=== PATIENT | female | born 1940 | race Caucasian/White ===

== ENCOUNTER 2019-06-12 23:09 | Inpatient (IN) ==
[2019-06-13] MEDS ORDERED: DEXTROSE 50% 25 GM/50 ML VIAL IV PRN (03:06)
[2019-06-13] MEDS ORDERED: traZODone 50 MG TABLET PO PRN (03:06)
[2019-06-13] MEDS ORDERED: GLUCAGON 1 MG VIAL IM PRN (03:06)
[2019-06-13 05:09] LABS: Basophils # 0.1 10*3/uL (0.0-0.2); Basophils % 0.6 % (0.0-0.8); Eosinophils # 0.2 10*3/uL (0.0-0.87); Eosinophils % 2.4 % (0.00-10.9); Hematocrit 34.6 VOL% (35.7-47.0); Hemoglobin 10.4 GM/DL (12.0-16.0); Immature Granulocytes % 0.3 %; Immature Granulocytes Absolute 0.03 #; Lymphocytes # 2.1 10*3/uL (1.4-4.0); Lymphocytes % 20.4 % (21.3-54.2); Mean Corpuscular HGB Conc 30.1 GM/DL (32-36); Mean Corpuscular Volume 90.6 FL (87-102); Mean Platelet Volume 12.1 FL (9.6-12.0); Neutrophils % 67.3 % (38.7-73.9); Platelet Count 112 T/CUMM (130-400); Red Blood Count 3.82 MC/CUMM (3.8-5.5); Red Cell Distribution Width 15.4 % (9.3-17.3); White Blood Count 10.1 T/CUMM (4-12)
[2019-06-13 05:43] LABS: Albumin 3.2 G/DL (3.4-5.0); Bilirubin,Total 0.6 MG/DL (0.2-1.0); Calcium 8.9 MG/DL (8.5-10.1); Osmolality,Calculated 298.3 MOS/KG (273-304); Total Protein 6.6 G/DL (6.4-8.3)
[2019-06-13 05:58] LABS: % Iron Saturation 7.2 % (18-50); Ferritin 14.9 ng/ml (8-252)
[2019-06-13 06:09] LABS: Risk Ratio 1.87; Thyroid Stimulating Hormone 1.64 uIU/ml (0.358-3.74); VLDL CHOLESTEROL 23.2 MG/DL
[2019-06-13 06:36] LABS: Sedimentation Rate-Westergren 40 MM/HR (0-30)
[2019-06-13] MEDS: INSULIN LISPRO 100 UNIT/ML SUBCUT SCH ×7 (08:24→22:05)
[2019-06-13] MEDS: ENOXAPARIN 30 MG/0.3 ML SYRINGE SUBCUT SCH (08:38)
[2019-06-13] MEDS: FUROSEMIDE 40 MG/4 ML VIAL IV SCH ×2 (08:38→16:30)
[2019-06-13] MEDS: MAGNESIUM CHLORIDE 64 MG TABLET PO SCH ×2 (08:39→22:04)
[2019-06-13] MEDS: CETIRIZINE 10 MG TABLET PO SCH (08:39)
[2019-06-13] MEDS: CYANOCOBALAMIN 500 MCG TABLET PO SCH (08:39)
[2019-06-13] MEDS: amLODIPine 5 MG TABLET PO SCH (08:39)
[2019-06-13] MEDS: METOPROLOL TARTRATE 50 MG TABLET PO SCH ×2 (08:39→22:04)
[2019-06-13] MEDS: ASPIRIN EC 81 MG TABLET PO SCH (08:39)
[2019-06-13] MEDS: ACETAMINOPHEN 325 MG TABLET PO PRN ×2 (08:39→13:35)
[2019-06-13] MEDS: ALLOPURINOL 300 MG TABLET PO SCH (08:39)
[2019-06-13] MEDS: CITALOPRAM 20 MG TABLET PO SCH (08:39)
[2019-06-13] MEDS: ATORVASTATIN 80 MG TABLET PO SCH (08:39)
[2019-06-13 09:52] LABS: Hemoglobin A1 (Alkaline) 97.6 % (96.5-98.5); Hemoglobin A2 (Alkaline) 2.4 % (1.5-3.5)
[2019-06-13 10:32] LABS: Folate 13.2 NG/ML (5.4-24.0); Vitamin B12 1735 PG/ML (211-911)
[2019-06-13] MEDS: MORPHINE 4 MG/1 ML VIAL IV PRN ×2 (16:30→22:06)
[2019-06-13] MEDS: INSULIN GLARGINE 100 UNIT/ML SUBCUT SCH (22:05)
[2019-06-14 05:04] LABS: Calcium 8.8 MG/DL (8.5-10.1); Osmolality,Calculated 296.4 MOS/KG (273-304)
[2019-06-14] MEDS: INSULIN LISPRO 100 UNIT/ML SUBCUT SCH ×7 (08:39→21:58)
[2019-06-14] MEDS: ATORVASTATIN 80 MG TABLET PO SCH (08:40)
[2019-06-14] MEDS: CYANOCOBALAMIN 500 MCG TABLET PO SCH (08:40)
[2019-06-14] MEDS: MAGNESIUM CHLORIDE 64 MG TABLET PO SCH ×2 (08:40→21:57)
[2019-06-14] MEDS: ALLOPURINOL 300 MG TABLET PO SCH (08:40)
[2019-06-14] MEDS: ASPIRIN EC 81 MG TABLET PO SCH (08:40)
[2019-06-14] MEDS: CITALOPRAM 20 MG TABLET PO SCH (08:40)
[2019-06-14] MEDS: FUROSEMIDE 40 MG/4 ML VIAL IV SCH ×2 (08:40→16:51)
[2019-06-14] MEDS: amLODIPine 5 MG TABLET PO SCH (08:40)
[2019-06-14] MEDS: METOPROLOL TARTRATE 50 MG TABLET PO SCH ×2 (08:40→21:56)
[2019-06-14] MEDS: CETIRIZINE 10 MG TABLET PO SCH (08:41)
[2019-06-14] MEDS: ENOXAPARIN 30 MG/0.3 ML SYRINGE SUBCUT SCH (08:42)
[2019-06-14] MEDS: MORPHINE 4 MG/1 ML VIAL IV PRN ×2 (10:41→22:00)
[2019-06-14] MEDS: ALBUTEROL/IPRATROPIUM 3 ML NEB RESP TX SCH ×2 (15:53→19:40)
[2019-06-14] MEDS: traZODone 50 MG TABLET PO PRN (21:56)
[2019-06-14] MEDS: INSULIN GLARGINE 100 UNIT/ML SUBCUT SCH (21:57)
[2019-06-15] MEDS: MORPHINE 4 MG/1 ML VIAL IV PRN (02:35)
[2019-06-15] MEDS: ONDANSETRON 4 MG/2 ML VIAL IV PRN ×2 (05:03→09:15)
[2019-06-15] MEDS: ACETAMINOPHEN 325 MG TABLET PO PRN (05:04)
[2019-06-15] MEDS: ALBUTEROL/IPRATROPIUM 3 ML NEB RESP TX SCH ×4 (07:23→20:00)
[2019-06-15] MEDS: INSULIN LISPRO 100 UNIT/ML SUBCUT SCH ×7 (08:19→22:16)
[2019-06-15 09:07] LABS: Basophils % 0.3 % (0.0-0.8); Eosinophils # 0.1 10*3/uL (0.0-0.87); Eosinophils % 1.1 % (0.00-10.9); Hematocrit 33.9 VOL% (35.7-47.0); Immature Granulocytes % 0.3 %; Immature Granulocytes Absolute 0.03 #; Lymphocytes # 2.1 10*3/uL (1.4-4.0); Lymphocytes % 22.9 % (21.3-54.2); Mean Corpuscular HGB Conc 29.5 GM/DL (32-36); Mean Corpuscular Volume 92.9 FL (87-102); Mean Platelet Volume 12.2 FL (9.6-12.0); Neutrophils % 65.4 % (38.7-73.9); Platelet Count 105 T/CUMM (130-400); Red Blood Count 3.65 MC/CUMM (3.8-5.5); Red Cell Distribution Width 15.3 % (9.3-17.3)
[2019-06-15] MEDS: FUROSEMIDE 40 MG/4 ML VIAL IV SCH ×2 (09:16→16:14)
[2019-06-15 09:21] LABS: Calcium 8.5 MG/DL (8.5-10.1); Osmolality,Calculated 293.8 MOS/KG (273-304)
[2019-06-15] MEDS: ASPIRIN EC 81 MG TABLET PO SCH (09:37)
[2019-06-15] MEDS: ENOXAPARIN 30 MG/0.3 ML SYRINGE SUBCUT SCH (09:37)
[2019-06-15] MEDS: CYANOCOBALAMIN 500 MCG TABLET PO SCH (09:38)
[2019-06-15] MEDS: DOCUSATE SODIUM 100 MG CAPSULE PO PRN (09:38)
[2019-06-15] MEDS: CITALOPRAM 20 MG TABLET PO SCH (09:38)
[2019-06-15] MEDS: METOPROLOL TARTRATE 50 MG TABLET PO SCH ×2 (09:38→22:16)
[2019-06-15] MEDS: CETIRIZINE 10 MG TABLET PO SCH (09:38)
[2019-06-15] MEDS: ATORVASTATIN 80 MG TABLET PO SCH (09:38)
[2019-06-15] MEDS: amLODIPine 5 MG TABLET PO SCH (09:38)
[2019-06-15] MEDS: ALLOPURINOL 300 MG TABLET PO SCH (09:38)
[2019-06-15] MEDS: MAGNESIUM CHLORIDE 64 MG TABLET PO SCH ×2 (09:38→22:16)
[2019-06-15] MEDS ORDERED: MECLIZINE 25 MG TABLET PO ONE (11:16)
[2019-06-15] MEDS ORDERED: PANTOPRAZOLE 40 MG VIAL IV ONE (13:23)
[2019-06-15] MEDS: MECLIZINE 25 MG TABLET PO SCH ×2 (16:03→22:13)
[2019-06-15] MEDS: INSULIN GLARGINE 100 UNIT/ML SUBCUT SCH (22:17)
[2019-06-15] MEDS: traZODone 50 MG TABLET PO PRN (22:21)
[2019-06-16] MEDS: ONDANSETRON 4 MG/2 ML VIAL IV PRN ×2 (01:42→07:05)
[2019-06-16] MEDS: MORPHINE 4 MG/1 ML VIAL IV PRN (03:26)
[2019-06-16 05:19] LABS: Basophils % 0.2 % (0.0-0.8); Eosinophils % 0.2 % (0.00-10.9); Hematocrit 32.9 VOL% (35.7-47.0); Hemoglobin 9.8 GM/DL (12.0-16.0); Immature Granulocytes % 0.8 %; Immature Granulocytes Absolute 0.08 #; Lymphocytes # 0.8 10*3/uL (1.4-4.0); Lymphocytes % 7.4 % (21.3-54.2); Mean Corpuscular HGB Conc 29.8 GM/DL (32-36); Mean Corpuscular Volume 92.9 FL (87-102); Mean Platelet Volume 12.2 FL (9.6-12.0); Monocytes % 9.8 % (1.7-12.7); Neutrophils % 81.6 % (38.7-73.9); Platelet Count 129 T/CUMM (130-400); Red Blood Count 3.54 MC/CUMM (3.8-5.5); Red Cell Distribution Width 15.1 % (9.3-17.3); White Blood Count 10.6 T/CUMM (4-12)
[2019-06-16 05:39] LABS: Calcium 8.2 MG/DL (8.5-10.1); Osmolality,Calculated 293.7 MOS/KG (273-304)
[2019-06-16] MEDS: ALBUTEROL/IPRATROPIUM 3 ML NEB RESP TX SCH ×4 (07:25→19:29)
[2019-06-16] MEDS: FUROSEMIDE 40 MG/4 ML VIAL IV SCH (08:40)
[2019-06-16] MEDS: CETIRIZINE 10 MG TABLET PO SCH (08:41)
[2019-06-16] MEDS: ENOXAPARIN 30 MG/0.3 ML SYRINGE SUBCUT SCH (08:41)
[2019-06-16] MEDS: ASPIRIN EC 81 MG TABLET PO SCH (08:41)
[2019-06-16] MEDS: MECLIZINE 25 MG TABLET PO SCH (08:41)
[2019-06-16] MEDS: ATORVASTATIN 80 MG TABLET PO SCH (08:42)
[2019-06-16] MEDS: ALLOPURINOL 300 MG TABLET PO SCH (08:42)
[2019-06-16] MEDS: CITALOPRAM 20 MG TABLET PO SCH (08:42)
[2019-06-16] MEDS: CYANOCOBALAMIN 500 MCG TABLET PO SCH (08:42)
[2019-06-16] MEDS: PANTOPRAZOLE 40 MG TABLET PO SCH (08:42)
[2019-06-16] MEDS: METOPROLOL TARTRATE 50 MG TABLET PO SCH ×2 (08:42→20:34)
[2019-06-16] MEDS: INSULIN LISPRO 100 UNIT/ML SUBCUT SCH ×5 (08:43→20:34)
[2019-06-16 10:20] LABS: ABG Base Excess -4.9 MMOL/L (-2.5-2.5); ABG HCO3 20.3 MMOL/L (20-26); ABG Oxygen Saturation 92.7 % (95-100); ABG PO2 72.5 MM HG (80-95)
[2019-06-16 10:26] LABS: ABG PH 7.184 (7.35-7.45)
[2019-06-16] MEDS: amLODIPine 5 MG TABLET PO SCH (11:23)
[2019-06-16] MEDS: MAGNESIUM CHLORIDE 64 MG TABLET PO SCH ×2 (11:24→20:34)
[2019-06-16] MEDS ORDERED: CLORAZEPATE 3.75 MG TABLET PO PRN (12:22)
[2019-06-16 12:31] LABS: ABG Base Excess -4.5 MMOL/L (-2.5-2.5); ABG HCO3 20.7 MMOL/L (20-26); ABG Oxygen Saturation 96.5 % (95-100); ABG PCO2 61.4 MM HG (35-48); ABG PO2 90.6 MM HG (80-95); ABG TCO2 22.8 MMOL/L (23-27); Pt O2 Delivery Device BIPAP
[2019-06-16 12:34] LABS: ABG PH 7.206 (7.35-7.45)
[2019-06-16] MEDS ORDERED: SODIUM BICARB INJ 100 MEQ in SODIUM CHLORIDE 0.45% 1,000 ML IV SCH (15:00)
[2019-06-16 15:28] LABS: Apearance,Urine Slightly Hazy (Clear); Bacteria,Urine Occasional /HPF (Few); Bilirubin,Urine Negative (Negative); Blood, Urine Negative (Negative); Glucose,Urine (UA) Negative (Negative); Hyaline Casts,Urine 6 /LPF (0-3); Ketones,Urine Negative (Negative); Mucus,Urine Occasional /LPF (Occasional); Nitrite,Urine Negative (Negative); Protein,Urine Negative; RBC,Urine 10 /HPF (0-4); Squamous Epithelial Cell,Urine Occasional /HPF (0-10); Urine Color Amber (Yellow); Urine Specific Gravity 1.016 (1.001-1.035); WBC,Urine 4 /HPF (0-6)
[2019-06-16] MEDS: methylPREDNISolone SOD SUC 40 MG/1 ML VIAL IV SCH ×2 (15:51→23:02)
[2019-06-16] MEDS: SODIUM BICARB INJ 100 MEQ in SODIUM CHLORIDE 0.45% 1,000 ML IV SCH (16:34)
[2019-06-16] MEDS ORDERED: FUROSEMIDE 40 MG/4 ML VIAL IV ONE (18:19)
[2019-06-16] MEDS: INSULIN GLARGINE 100 UNIT/ML SUBCUT SCH (20:34)
[2019-06-17] MEDS: ONDANSETRON 4 MG/2 ML VIAL IV PRN ×2 (02:02→08:11)
[2019-06-17] MEDS: SODIUM BICARB INJ 100 MEQ in SODIUM CHLORIDE 0.45% 1,000 ML IV SCH ×2 (02:02→13:44)
[2019-06-17 03:36] LABS: ABG Base Excess -5.1 MMOL/L (-2.5-2.5); ABG HCO3 20.1 MMOL/L (20-26); ABG Oxygen Saturation 91.2 % (95-100); ABG PO2 69.6 MM HG (80-95); ABG TCO2 22.3 MMOL/L (23-27); Allen Test Positive
[2019-06-17 03:40] LABS: ABG PH 7.199 (7.35-7.45)
[2019-06-17 04:44] LABS: Osmolality,Calculated 298.7 MOS/KG (273-304)
[2019-06-17] MEDS: ALBUTEROL/IPRATROPIUM 3 ML NEB RESP TX SCH ×4 (06:56→20:18)
[2019-06-17] MEDS: CITALOPRAM 20 MG TABLET PO SCH (08:08)
[2019-06-17] MEDS: ATORVASTATIN 80 MG TABLET PO SCH (08:08)
[2019-06-17] MEDS: METOPROLOL TARTRATE 50 MG TABLET PO SCH ×2 (08:08→21:54)
[2019-06-17] MEDS: CYANOCOBALAMIN 500 MCG TABLET PO SCH (08:08)
[2019-06-17] MEDS: PANTOPRAZOLE 40 MG TABLET PO SCH (08:08)
[2019-06-17] MEDS: ASPIRIN EC 81 MG TABLET PO SCH (08:08)
[2019-06-17] MEDS: ALLOPURINOL 300 MG TABLET PO SCH (08:09)
[2019-06-17] MEDS: ACETAMINOPHEN 325 MG TABLET PO PRN (08:10)
[2019-06-17] MEDS: ENOXAPARIN 30 MG/0.3 ML SYRINGE SUBCUT SCH (08:11)
[2019-06-17] MEDS: methylPREDNISolone SOD SUC 40 MG/1 ML VIAL IV SCH ×3 (08:13→23:10)
[2019-06-17] MEDS: INSULIN LISPRO 100 UNIT/ML SUBCUT SCH ×4 (08:15→21:53)
[2019-06-17] MEDS: MAGNESIUM CHLORIDE 64 MG TABLET PO SCH ×2 (08:16→21:54)
[2019-06-17 10:31] LABS: Hepatitis B Core IgM Quant 0.07 Index; Hepatitis B Surface Ag Quant 0.21 Index; Hepatitis B Surface Ag Result Negative (Negative); Hepatitis C Virus Ab Quant < 0.02 Index; Hepatitis C Virus Ab Result Negative (Negative)
[2019-06-17] MEDS: CLORAZEPATE 3.75 MG TABLET PO SCH ×3 (11:41→22:05)
[2019-06-17] MEDS: INSULIN GLARGINE 100 UNIT/ML SUBCUT SCH (21:53)
[2019-06-18] MEDS: SODIUM BICARB INJ 100 MEQ in SODIUM CHLORIDE 0.45% 1,000 ML IV SCH ×3 (00:53→22:41)
[2019-06-18] MEDS ORDERED: CLORAZEPATE 3.75 MG TABLET PO ONE ×2 (02:49→09:41)
[2019-06-18 04:00] LABS: Hematocrit 31.1 VOL% (35.7-47.0); Hemoglobin 9.2 GM/DL (12.0-16.0); Immature Granulocytes % 0.6 %; Immature Granulocytes Absolute 0.07 #; Lymphocytes # 0.3 10*3/uL (1.4-4.0); Lymphocytes % 2.7 % (21.3-54.2); Mean Corpuscular HGB Conc 29.6 GM/DL (32-36); Mean Corpuscular Volume 91.5 FL (87-102); Mean Platelet Volume 11.9 FL (9.6-12.0); Monocytes % 3.9 % (1.7-12.7); NRBC # 0.07 10*3/uL; Neutrophils % 92.8 % (38.7-73.9); Platelet Count 160 T/CUMM (130-400); Red Cell Distribution Width 15.1 % (9.3-17.3); White Blood Count 10.8 T/CUMM (4-12)
[2019-06-18 04:06] LABS: Calcium 7.5 MG/DL (8.5-10.1); Osmolality,Calculated 308.7 MOS/KG (273-304)
[2019-06-18 04:24] LABS: ABG Base Excess -0.7 MMOL/L (-2.5-2.5); ABG HCO3 23.7 MMOL/L (20-26); ABG Oxygen Saturation 90.7 % (95-100); ABG PCO2 56.3 MM HG (35-48); ABG PH 7.284 (7.35-7.45); ABG PO2 67.2 MM HG (80-95); ABG TCO2 24.9 MMOL/L (23-27); Allen Test Positive; Pt O2 Delivery Device CPAP
[2019-06-18 05:29] LABS: Band Neutrophils 1 % (0-10); Hypochromasia 1+; Lymphocytes 2 % (20-55); Ovalocytes Slight; Platelet Estimate Adequate; Segmented Neutrophils 92 % (50-85); Total Cells Counted 100
[2019-06-18] MEDS: CLORAZEPATE 3.75 MG TABLET PO SCH (05:50)
[2019-06-18] MEDS: methylPREDNISolone SOD SUC 40 MG/1 ML VIAL IV SCH ×2 (07:06→18:16)
[2019-06-18] MEDS: ALBUTEROL/IPRATROPIUM 3 ML NEB RESP TX SCH ×4 (07:16→19:59)
[2019-06-18] MEDS: INSULIN LISPRO 100 UNIT/ML SUBCUT SCH ×4 (08:47→20:40)
[2019-06-18] MEDS: ENOXAPARIN 30 MG/0.3 ML SYRINGE SUBCUT SCH (08:47)
[2019-06-18] MEDS: MAGNESIUM CHLORIDE 64 MG TABLET PO SCH ×2 (08:48→20:41)
[2019-06-18] MEDS: CYANOCOBALAMIN 500 MCG TABLET PO SCH (08:48)
[2019-06-18] MEDS: ALLOPURINOL 300 MG TABLET PO SCH (08:48)
[2019-06-18] MEDS: ATORVASTATIN 80 MG TABLET PO SCH (08:48)
[2019-06-18] MEDS: METOPROLOL TARTRATE 50 MG TABLET PO SCH ×2 (08:48→20:40)
[2019-06-18] MEDS: CITALOPRAM 20 MG TABLET PO SCH (08:48)
[2019-06-18] MEDS: PANTOPRAZOLE 40 MG TABLET PO SCH (08:48)
[2019-06-18] MEDS: ASPIRIN EC 81 MG TABLET PO SCH (08:48)
[2019-06-18] MEDS ORDERED: LACTULOSE 20 GM/30 ML UDCUP PO ONE ×2 (09:43→09:45)
[2019-06-18] MEDS: POLYETHYLENE GLYCOL POWDER 17 GM PACK PO SCH (09:50)
[2019-06-18] MEDS: INSULIN GLARGINE 100 UNIT/ML SUBCUT SCH ×2 (11:27→20:40)
[2019-06-18] MEDS: CLORAZEPATE 7.5 MG TABLET PO SCH ×3 (11:27→22:40)
[2019-06-18 23:07] LABS: ABG Base Excess 0.1 MMOL/L (-2.5-2.5); ABG Oxygen Saturation 64.3 % (95-100); ABG PCO2 61.5 MM HG (35-48); ABG PH 7.268 (7.35-7.45); ABG TCO2 26.3 MMOL/L (23-27); Pt O2 Delivery Device BIPAP
[2019-06-18 23:10] LABS: ABG PO2 38.6 MM HG (80-95)
[2019-06-18 23:43] LABS: ABG HCO3 25.1 MMOL/L (20-26); ABG Oxygen Saturation 84.6 % (95-100); ABG PH 7.282 (7.35-7.45); ABG PO2 55.1 MM HG (80-95); ABG TCO2 26.8 MMOL/L (23-27); Allen Test Positive; Pt O2 Delivery Device BIPAP
[2019-06-19] MEDS: MORPHINE 4 MG/1 ML VIAL IV PRN ×3 (01:36→23:13)
[2019-06-19] MEDS ORDERED: NITROGLYCERIN SL 0.4 MG TABLET SL PRN (01:38)
[2019-06-19] MEDS ORDERED: MORPHINE 4 MG/1 ML VIAL ONE (01:39)
[2019-06-19] MEDS ORDERED: NITROGLYCERIN SL 0.4 MG TABLET SL ONE (01:40)
[2019-06-19 02:10] LABS: Basophils % 0.1 % (0.0-0.8); Hematocrit 30.1 VOL% (35.7-47.0); Hemoglobin 9.2 GM/DL (12.0-16.0); Immature Granulocytes % 0.4 %; Immature Granulocytes Absolute 0.08 #; Lymphocytes # 0.2 10*3/uL (1.4-4.0); Lymphocytes % 1.3 % (21.3-54.2); Mean Corpuscular HGB Conc 30.6 GM/DL (32-36); Mean Corpuscular Volume 89.9 FL (87-102); Mean Platelet Volume 12.1 FL (9.6-12.0); Monocytes % 6.9 % (1.7-12.7); NRBC # 0.08 10*3/uL; Neutrophils % 91.3 % (38.7-73.9); Platelet Count 147 T/CUMM (130-400); Red Blood Count 3.35 MC/CUMM (3.8-5.5); Red Cell Distribution Width 15.3 % (9.3-17.3); White Blood Count 18.7 T/CUMM (4-12)
[2019-06-19 02:19] LABS: Calcium 7.8 MG/DL (8.5-10.1); Osmolality,Calculated 309.7 MOS/KG (273-304)
[2019-06-19 02:38] LABS: Anisocytosis 1+; Band Neutrophils 1 % (0-10); Lymphocytes 1 % (20-55); Nucleated Red Blood Cells 2 (0-5); Ovalocytes 1+; Platelet Estimate Adequate; Segmented Neutrophils 92 % (50-85); Total Cells Counted 100
[2019-06-19] MEDS: NITROGLYCERIN 2% OINT 1 INCH/GM PACK TOP ONE ×2 (04:52→05:10)
[2019-06-19] MEDS: CLORAZEPATE 7.5 MG TABLET PO SCH ×5 (04:53→20:29)
[2019-06-19] MEDS: ACETAMINOPHEN 325 MG TABLET PO PRN (05:15)
[2019-06-19] MEDS: methylPREDNISolone SOD SUC 40 MG/1 ML VIAL IV SCH ×2 (06:24→17:28)
[2019-06-19] MEDS: ALBUTEROL/IPRATROPIUM 3 ML NEB RESP TX SCH ×4 (07:27→19:20)
[2019-06-19] MEDS: ONDANSETRON 4 MG/2 ML VIAL IV PRN (07:54)
[2019-06-19] MEDS: INSULIN LISPRO 100 UNIT/ML SUBCUT SCH ×6 (08:08→20:29)
[2019-06-19] MEDS: INSULIN GLARGINE 100 UNIT/ML SUBCUT SCH ×2 (09:54→20:29)
[2019-06-19] MEDS: ENOXAPARIN 30 MG/0.3 ML SYRINGE SUBCUT SCH (09:54)
[2019-06-19] MEDS: POLYETHYLENE GLYCOL POWDER 17 GM PACK PO SCH (09:57)
[2019-06-19] MEDS: ALLOPURINOL 300 MG TABLET PO SCH (09:57)
[2019-06-19] MEDS: MAGNESIUM CHLORIDE 64 MG TABLET PO SCH ×2 (09:58→20:29)
[2019-06-19] MEDS: ASPIRIN EC 81 MG TABLET PO SCH (09:58)
[2019-06-19] MEDS: CITALOPRAM 20 MG TABLET PO SCH (09:58)
[2019-06-19] MEDS: ATORVASTATIN 80 MG TABLET PO SCH (09:58)
[2019-06-19] MEDS: CYANOCOBALAMIN 500 MCG TABLET PO SCH (09:58)
[2019-06-19] MEDS: PANTOPRAZOLE 40 MG TABLET PO SCH (09:58)
[2019-06-19] MEDS: METOPROLOL TARTRATE 50 MG TABLET PO SCH ×2 (09:58→20:29)
[2019-06-20] MEDS: INSULIN LISPRO 100 UNIT/ML SUBCUT SCH ×6 (00:42→21:02)
[2019-06-20] MEDS: CLORAZEPATE 7.5 MG TABLET PO SCH ×4 (01:10→19:36)
[2019-06-20 02:26] LABS: Basophils % 0.1 % (0.0-0.8); Hematocrit 29.2 VOL% (35.7-47.0); Hemoglobin 8.8 GM/DL (12.0-16.0); Immature Granulocytes % 0.5 %; Immature Granulocytes Absolute 0.07 #; Lymphocytes # 0.3 10*3/uL (1.4-4.0); Lymphocytes % 2.1 % (21.3-54.2); Mean Corpuscular HGB Conc 30.1 GM/DL (32-36); Mean Corpuscular Volume 90.4 FL (87-102); Mean Platelet Volume 11.9 FL (9.6-12.0); Monocytes % 5.5 % (1.7-12.7); NRBC # 0.18 10*3/uL; Neutrophils % 91.8 % (38.7-73.9); Platelet Count 159 T/CUMM (130-400); Red Blood Count 3.23 MC/CUMM (3.8-5.5); Red Cell Distribution Width 15.4 % (9.3-17.3); White Blood Count 13.5 T/CUMM (4-12)
[2019-06-20 02:43] LABS: Osmolality,Calculated 303.2 MOS/KG (273-304)
[2019-06-20 03:18] LABS: CKMB % 9.6 %
[2019-06-20 03:20] LABS: Troponin I 5.59 NG/ML (0.00-0.045)
[2019-06-20 04:14] LABS: Lymphocytes 1 % (20-55); Nucleated Red Blood Cells 1 (0-5); Platelet Estimate Adequate; Polychromasia Few; Segmented Neutrophils 98 % (50-85); Total Cells Counted 100
[2019-06-20] MEDS: methylPREDNISolone SOD SUC 40 MG/1 ML VIAL IV SCH ×2 (05:38→18:14)
[2019-06-20] MEDS: ALBUTEROL/IPRATROPIUM 3 ML NEB RESP TX SCH ×4 (07:56→20:05)
[2019-06-20] MEDS: ATORVASTATIN 80 MG TABLET PO SCH (08:18)
[2019-06-20] MEDS: PANTOPRAZOLE 40 MG TABLET PO SCH (08:20)
[2019-06-20] MEDS: MAGNESIUM CHLORIDE 64 MG TABLET PO SCH ×2 (08:20→20:33)
[2019-06-20] MEDS: CITALOPRAM 20 MG TABLET PO SCH (08:20)
[2019-06-20] MEDS: ALLOPURINOL 300 MG TABLET PO SCH (08:20)
[2019-06-20] MEDS: ASPIRIN EC 81 MG TABLET PO SCH (08:20)
[2019-06-20] MEDS: CYANOCOBALAMIN 500 MCG TABLET PO SCH (08:20)
[2019-06-20] MEDS: ENOXAPARIN 30 MG/0.3 ML SYRINGE SUBCUT SCH (08:23)
[2019-06-20] MEDS: INSULIN GLARGINE 100 UNIT/ML SUBCUT SCH ×2 (08:24→21:00)
[2019-06-20] MEDS: METOPROLOL TARTRATE 50 MG TABLET PO SCH ×2 (09:39→21:00)
[2019-06-20] MEDS: POLYETHYLENE GLYCOL POWDER 17 GM PACK PO SCH (12:16)
[2019-06-20] MEDS ORDERED: ALBUMIN 25% 25 GM in PREMIX 1 EACH IV ONE (14:00)
[2019-06-20] MEDS ORDERED: HEPARIN 10,000 UNIT/10 ML VIAL IV SCH (14:00)
[2019-06-21] MEDS: INSULIN LISPRO 100 UNIT/ML SUBCUT SCH ×6 (00:24→21:57)
[2019-06-21] MEDS: CLORAZEPATE 7.5 MG TABLET PO SCH ×2 (01:29→08:07)
[2019-06-21 03:40] LABS: Basophils % 0.1 % (0.0-0.8); Hematocrit 29.8 VOL% (35.7-47.0); Hemoglobin 8.7 GM/DL (12.0-16.0); Immature Granulocytes % 0.5 %; Immature Granulocytes Absolute 0.07 #; Lymphocytes # 0.2 10*3/uL (1.4-4.0); Lymphocytes % 1.7 % (21.3-54.2); Mean Corpuscular HGB Conc 29.2 GM/DL (32-36); Mean Corpuscular Volume 93.1 FL (87-102); Mean Platelet Volume 11.6 FL (9.6-12.0); Monocytes % 6.6 % (1.7-12.7); NRBC # 0.36 10*3/uL; Neutrophils % 91.1 % (38.7-73.9); Platelet Count 137 T/CUMM (130-400); Red Cell Distribution Width 15.8 % (9.3-17.3); White Blood Count 14.1 T/CUMM (4-12)
[2019-06-21 04:05] LABS: Calcium 8.7 MG/DL (8.5-10.1); Osmolality,Calculated 292.2 MOS/KG (273-304)
[2019-06-21 04:16] LABS: Troponin I 4.1 NG/ML (0.00-0.045)
[2019-06-21 04:38] LABS: Lymphocytes 2 % (20-55); Myelocytes 1 %; Nucleated Red Blood Cells 3 (0-5); Segmented Neutrophils 86 % (50-85); Total Cells Counted 100
[2019-06-21 04:39] LABS: Hypochromasia 1+; Ovalocytes 1+; Platelet Estimate Normal
[2019-06-21 04:40] LABS: Polychromasia Few
[2019-06-21] MEDS: methylPREDNISolone SOD SUC 40 MG/1 ML VIAL IV SCH ×2 (05:40→18:01)
[2019-06-21] MEDS: ENOXAPARIN 30 MG/0.3 ML SYRINGE SUBCUT SCH ×2 (08:09→10:47)
[2019-06-21] MEDS: ALBUTEROL/IPRATROPIUM 3 ML NEB RESP TX SCH ×4 (08:15→20:34)
[2019-06-21] MEDS: INSULIN GLARGINE 100 UNIT/ML SUBCUT SCH ×2 (08:26→21:52)
[2019-06-21] MEDS: MAGNESIUM CHLORIDE 64 MG TABLET PO SCH ×2 (08:27→21:52)
[2019-06-21] MEDS ORDERED: ALBUMIN 25% 25 GM in PREMIX 1 EACH IV ONE (10:00)
[2019-06-21] MEDS: CITALOPRAM 20 MG TABLET PO SCH (10:29)
[2019-06-21] MEDS: METOPROLOL TARTRATE 50 MG TABLET PO SCH ×2 (10:29→21:58)
[2019-06-21] MEDS: POLYETHYLENE GLYCOL POWDER 17 GM PACK PO SCH (10:29)
[2019-06-21 10:30] LABS: ABG Base Excess 0.1 MMOL/L (-2.5-2.5); ABG HCO3 29.7 MMOL/L (20-26); ABG Oxygen Saturation 95.8 % (95-100); ABG PO2 90.7 MM HG (80-95); ABG TCO2 32.2 MMOL/L (23-27); Allen Test Positive
[2019-06-21] MEDS: ASCORBIC ACID 500 MG TABLET PO SCH ×2 (10:30→21:59)
[2019-06-21 10:35] LABS: ABG PCO2 81.4 MM HG (35-48)
[2019-06-21] MEDS: ATORVASTATIN 80 MG TABLET PO SCH (10:48)
[2019-06-21] MEDS: PANTOPRAZOLE 40 MG TABLET PO SCH (10:48)
[2019-06-21] MEDS: ALLOPURINOL 300 MG TABLET PO SCH (10:48)
[2019-06-21] MEDS: ASPIRIN EC 81 MG TABLET PO SCH (10:48)
[2019-06-21] MEDS: CYANOCOBALAMIN 500 MCG TABLET PO SCH (10:48)
[2019-06-21 13:49] LABS: ABG Base Excess -1.5 MMOL/L (-2.5-2.5); ABG HCO3 23.1 MMOL/L (20-26); ABG Oxygen Saturation 91.7 % (95-100); ABG PO2 68.9 MM HG (80-95); ABG TCO2 26.2 MMOL/L (23-27)
[2019-06-21 13:51] LABS: ABG PCO2 69.7 MM HG (35-48); ABG PH 7.207 (7.35-7.45)
[2019-06-21] MEDS: ACETAMINOPHEN 325 MG TABLET PO PRN (18:11)
[2019-06-22] MEDS: INSULIN LISPRO 100 UNIT/ML SUBCUT SCH ×6 (00:03→21:19)
[2019-06-22 04:53] LABS: Basophils % 0.1 % (0.0-0.8); Eosinophils % 0.1 % (0.00-10.9); Hematocrit 28.9 VOL% (35.7-47.0); Hemoglobin 8.4 GM/DL (12.0-16.0); Immature Granulocytes % 1.8 %; Immature Granulocytes Absolute 0.22 #; Lymphocytes # 0.5 10*3/uL (1.4-4.0); Lymphocytes % 4.1 % (21.3-54.2); Mean Corpuscular HGB Conc 29.1 GM/DL (32-36); Mean Corpuscular Volume 91.5 FL (87-102); Mean Platelet Volume 11.9 FL (9.6-12.0); Monocytes % 6.6 % (1.7-12.7); NRBC # 0.85 10*3/uL; Neutrophils % 87.3 % (38.7-73.9); Platelet Count 139 T/CUMM (130-400); Red Blood Count 3.16 MC/CUMM (3.8-5.5); Red Cell Distribution Width 15.8 % (9.3-17.3); White Blood Count 12.2 T/CUMM (4-12)
[2019-06-22 05:15] LABS: Calcium 9.3 MG/DL (8.5-10.1)
[2019-06-22 05:49] LABS: Band Neutrophils 2 % (0-10); Eosinophils 1 % (0-10); Lymphocytes 8 % (20-55); Metamyelocytes 1 %; Nucleated Red Blood Cells 7 (0-5); Platelet Estimate Decreased; Segmented Neutrophils 83 % (50-85); Total Cells Counted 100
[2019-06-22] MEDS: methylPREDNISolone SOD SUC 40 MG/1 ML VIAL IV SCH ×3 (06:11→17:05)
[2019-06-22] MEDS: ALBUTEROL/IPRATROPIUM 3 ML NEB RESP TX SCH ×4 (07:28→20:38)
[2019-06-22 07:34] LABS: ABG Base Excess -0.1 MMOL/L (-2.5-2.5); ABG HCO3 25.9 MMOL/L (20-26); ABG PCO2 49.2 MM HG (35-48); ABG PO2 75.1 MM HG (80-95); ABG TCO2 27.5 MMOL/L (23-27); Pt O2 Delivery Device BIPAP
[2019-06-22] MEDS: ATORVASTATIN 80 MG TABLET PO SCH (08:17)
[2019-06-22] MEDS: ASPIRIN EC 81 MG TABLET PO SCH (08:17)
[2019-06-22] MEDS: METOPROLOL TARTRATE 50 MG TABLET PO SCH ×2 (08:17→21:18)
[2019-06-22] MEDS: ALLOPURINOL 300 MG TABLET PO SCH (08:17)
[2019-06-22] MEDS: POLYETHYLENE GLYCOL POWDER 17 GM PACK PO SCH (08:17)
[2019-06-22] MEDS: CYANOCOBALAMIN 500 MCG TABLET PO SCH (08:17)
[2019-06-22] MEDS: PANTOPRAZOLE 40 MG TABLET PO SCH (08:17)
[2019-06-22] MEDS: CITALOPRAM 20 MG TABLET PO SCH (08:18)
[2019-06-22] MEDS: INSULIN GLARGINE 100 UNIT/ML SUBCUT SCH ×2 (08:18→21:20)
[2019-06-22] MEDS: ENOXAPARIN 30 MG/0.3 ML SYRINGE SUBCUT SCH (08:18)
[2019-06-22] MEDS: ASCORBIC ACID 500 MG TABLET PO SCH ×2 (08:18→21:18)
[2019-06-22] MEDS: MAGNESIUM CHLORIDE 64 MG TABLET PO SCH ×2 (08:19→21:18)
[2019-06-22] MEDS ORDERED: traZODone 50 MG TABLET PO PRN (10:38)
[2019-06-22] MEDS: ACETAMINOPHEN 325 MG TABLET PO PRN (21:18)
[2019-06-23] MEDS: ACETAMINOPHEN 325 MG TABLET PO PRN (00:45)
[2019-06-23] MEDS: INSULIN LISPRO 100 UNIT/ML SUBCUT SCH ×6 (00:45→22:42)
[2019-06-23] MEDS: methylPREDNISolone SOD SUC 40 MG/1 ML VIAL IV SCH ×2 (05:00→17:01)
[2019-06-23 05:18] LABS: Basophils % 0.2 % (0.0-0.8); Hematocrit 29.5 VOL% (35.7-47.0); Hemoglobin 8.8 GM/DL (12.0-16.0); Immature Granulocytes % 2.6 %; Immature Granulocytes Absolute 0.37 #; Lymphocytes # 0.6 10*3/uL (1.4-4.0); Lymphocytes % 4.1 % (21.3-54.2); Mean Corpuscular HGB Conc 29.8 GM/DL (32-36); Mean Corpuscular Volume 89.4 FL (87-102); Mean Platelet Volume 11.9 FL (9.6-12.0); Monocytes % 4.3 % (1.7-12.7); NRBC # 0.88 10*3/uL; Neutrophils % 88.8 % (38.7-73.9); Platelet Count 147 T/CUMM (130-400); Red Cell Distribution Width 15.9 % (9.3-17.3); White Blood Count 14.1 T/CUMM (4-12)
[2019-06-23 05:35] LABS: Calcium 9.2 MG/DL (8.5-10.1); Osmolality,Calculated 309.2 MOS/KG (273-304)
[2019-06-23 05:38] LABS: Band Neutrophils 1 % (0-10); Hypochromasia 1+; Lymphocytes 3 % (20-55); Microcytosis 1+; Nucleated Red Blood Cells 3 (0-5); Promyelocytes 1 %; Segmented Neutrophils 92 % (50-85); Total Cells Counted 100
[2019-06-23 05:39] LABS: Ovalocytes Few; Platelet Estimate Adequate; Polychromasia Slight; Tear Drop Cells Slight
[2019-06-23] MEDS: ALBUTEROL/IPRATROPIUM 3 ML NEB RESP TX SCH ×4 (07:56→20:38)
[2019-06-23] MEDS: INSULIN GLARGINE 100 UNIT/ML SUBCUT SCH ×2 (14:08→22:42)
[2019-06-23] MEDS: ENOXAPARIN 30 MG/0.3 ML SYRINGE SUBCUT SCH (14:34)
[2019-06-23] MEDS: POLYETHYLENE GLYCOL POWDER 17 GM PACK PO SCH (14:44)
[2019-06-23] MEDS: ATORVASTATIN 80 MG TABLET PO SCH (14:44)
[2019-06-23] MEDS: METOPROLOL TARTRATE 50 MG TABLET PO SCH ×2 (14:44→21:59)
[2019-06-23] MEDS: CITALOPRAM 20 MG TABLET PO SCH (14:44)
[2019-06-23] MEDS: MAGNESIUM CHLORIDE 64 MG TABLET PO SCH ×2 (14:44→21:59)
[2019-06-23] MEDS: ASCORBIC ACID 500 MG TABLET PO SCH ×2 (14:44→21:59)
[2019-06-23] MEDS: DOCUSATE SODIUM 100 MG CAPSULE PO PRN (14:45)
[2019-06-23] MEDS: PANTOPRAZOLE 40 MG TABLET PO SCH (14:45)
[2019-06-23] MEDS: CYANOCOBALAMIN 500 MCG TABLET PO SCH (14:45)
[2019-06-23] MEDS: ASPIRIN EC 81 MG TABLET PO SCH (14:45)
[2019-06-23] MEDS: ALLOPURINOL 300 MG TABLET PO SCH (14:46)
[2019-06-24] MEDS: INSULIN LISPRO 100 UNIT/ML SUBCUT SCH ×6 (02:21→20:50)
[2019-06-24 04:31] LABS: Basophils % 0.1 % (0.0-0.8); Eosinophils % 0.1 % (0.00-10.9); Hematocrit 29.4 VOL% (35.7-47.0); Hemoglobin 8.7 GM/DL (12.0-16.0); Immature Granulocytes % 2.5 %; Immature Granulocytes Absolute 0.38 #; Lymphocytes # 0.3 10*3/uL (1.4-4.0); Mean Corpuscular HGB Conc 29.6 GM/DL (32-36); Mean Corpuscular Volume 89.9 FL (87-102); Mean Platelet Volume 12.1 FL (9.6-12.0); Monocytes % 4.4 % (1.7-12.7); NRBC # 0.82 10*3/uL; Neutrophils % 90.9 % (38.7-73.9); Platelet Count 147 T/CUMM (130-400); Red Blood Count 3.27 MC/CUMM (3.8-5.5); Red Cell Distribution Width 16.1 % (9.3-17.3); White Blood Count 15.1 T/CUMM (4-12)
[2019-06-24 04:38] LABS: PT Patient Result 11.3 SECS (9.6-12.2)
[2019-06-24 04:46] LABS: Calcium 9.1 MG/DL (8.5-10.1); Osmolality,Calculated 303.4 MOS/KG (273-304)
[2019-06-24 04:51] LABS: Band Neutrophils 1 % (0-10); Hypochromasia 1+; Lymphocytes 3 % (20-55); Microcytosis Slight; Nucleated Red Blood Cells 7 (0-5); Ovalocytes Slight; Platelet Estimate Adequate; Segmented Neutrophils 89 % (50-85); Total Cells Counted 100
[2019-06-24] MEDS: methylPREDNISolone SOD SUC 40 MG/1 ML VIAL IV SCH ×2 (05:00→17:26)
[2019-06-24] MEDS ORDERED: HEPARIN/NACL 0.9% 2 UNITS/ML 1,000 ML IV ONE (06:45)
[2019-06-24] MEDS ORDERED: LIDOCAINE 1% 20 ML VIAL ONE (06:45)
[2019-06-24] MEDS ORDERED: MIDAZOLAM 2 MG/2 ML VIAL ONE (06:59)
[2019-06-24] MEDS ORDERED: fentaNYL 100 MCG/2 ML VIAL ONE (06:59)
[2019-06-24] MEDS ORDERED: POTASSIUM CHLORIDE RIDER 10 MEQ in PREMIX 1 EACH IV PRN (07:02)
[2019-06-24] MEDS ORDERED: MAGNESIUM SULF RIDER 2 GM in PREMIX 1 EACH IV PRN (07:02)
[2019-06-24] MEDS ORDERED: diphenhydrAMINE 50 MG/1 ML VIAL ONE (07:20)
[2019-06-24] MEDS ORDERED: HYDROmorphone 2 MG/1 ML VIAL ONE (07:30)
[2019-06-24] MEDS ORDERED: HEPARIN 5,000 UNIT/1 ML VIAL ONE (07:47)
[2019-06-24] MEDS: ALBUTEROL/IPRATROPIUM 3 ML NEB RESP TX SCH ×4 (07:50→18:40)
[2019-06-24] MEDS ORDERED: ZALEPLON 5 MG CAPSULE PO PRN (09:00)
[2019-06-24] MEDS ORDERED: DEXTROSE 10% 25 GM/250 ML BAG IV PRN (09:00)
[2019-06-24] MEDS ORDERED: GLUCAGON 1 MG VIAL IM PRN (09:00)
[2019-06-24] MEDS: ENOXAPARIN 30 MG/0.3 ML SYRINGE SUBCUT SCH (10:01)
[2019-06-24] MEDS: INSULIN GLARGINE 100 UNIT/ML SUBCUT SCH ×2 (10:02→20:51)
[2019-06-24] MEDS: CITALOPRAM 20 MG TABLET PO SCH (10:03)
[2019-06-24] MEDS: ASPIRIN EC 81 MG TABLET PO SCH (10:03)
[2019-06-24] MEDS: PANTOPRAZOLE 40 MG TABLET PO SCH (10:03)
[2019-06-24] MEDS: ATORVASTATIN 80 MG TABLET PO SCH (10:03)
[2019-06-24] MEDS: METOPROLOL TARTRATE 50 MG TABLET PO SCH ×2 (10:03→20:50)
[2019-06-24] MEDS: POLYETHYLENE GLYCOL POWDER 17 GM PACK PO SCH (10:03)
[2019-06-24] MEDS: CYANOCOBALAMIN 500 MCG TABLET PO SCH (10:04)
[2019-06-24] MEDS: ASCORBIC ACID 500 MG TABLET PO SCH ×2 (10:04→20:50)
[2019-06-24] MEDS: MAGNESIUM CHLORIDE 64 MG TABLET PO SCH ×2 (10:04→20:50)
[2019-06-24] MEDS: ALLOPURINOL 300 MG TABLET PO SCH (10:04)
[2019-06-24] MEDS ORDERED: traMADol 50 MG TABLET PO PRN (15:11)
[2019-06-25] MEDS: ACETAMINOPHEN 325 MG TABLET PO PRN (01:10)
[2019-06-25] MEDS: INSULIN LISPRO 100 UNIT/ML SUBCUT SCH ×4 (01:10→12:35)
[2019-06-25] MEDS: methylPREDNISolone SOD SUC 40 MG/1 ML VIAL IV SCH (05:06)
[2019-06-25 06:13] LABS: Basophils % 0.1 % (0.0-0.8); Eosinophils % 0.1 % (0.00-10.9); Hematocrit 30.9 VOL% (35.7-47.0); Hemoglobin 9.1 GM/DL (12.0-16.0); Immature Granulocytes % 2.7 %; Immature Granulocytes Absolute 0.43 #; Lymphocytes # 0.6 10*3/uL (1.4-4.0); Lymphocytes % 3.8 % (21.3-54.2); Mean Corpuscular HGB Conc 29.4 GM/DL (32-36); Mean Corpuscular Volume 91.4 FL (87-102); Mean Platelet Volume 11.9 FL (9.6-12.0); Monocytes % 7.5 % (1.7-12.7); NRBC # 1.47 10*3/uL; Neutrophils % 85.8 % (38.7-73.9); Platelet Count 143 T/CUMM (130-400); Red Blood Count 3.38 MC/CUMM (3.8-5.5); Red Cell Distribution Width 16.6 % (9.3-17.3); White Blood Count 15.9 T/CUMM (4-12)
[2019-06-25 06:34] LABS: Calcium 9.1 MG/DL (8.5-10.1)
[2019-06-25 06:45] LABS: Band Neutrophils 1 % (0-10); Hypochromasia 1+; Lymphocytes 5 % (20-55); Microcytosis 1+; Myelocytes 1 %; Nucleated Red Blood Cells 15 (0-5); Segmented Neutrophils 87 % (50-85); Total Cells Counted 100
[2019-06-25 06:46] LABS: Ovalocytes Few; Platelet Estimate Adequate; Polychromasia Slight
[2019-06-25] MEDS: ALBUTEROL/IPRATROPIUM 3 ML NEB RESP TX SCH ×3 (07:03→14:36)
[2019-06-25] MEDS: INSULIN GLARGINE 100 UNIT/ML SUBCUT SCH (12:33)
[2019-06-25] MEDS: ENOXAPARIN 30 MG/0.3 ML SYRINGE SUBCUT SCH (12:33)
[2019-06-25] MEDS: MAGNESIUM CHLORIDE 64 MG TABLET PO SCH (12:34)
[2019-06-25] MEDS: METOPROLOL TARTRATE 50 MG TABLET PO SCH (12:34)
[2019-06-25] MEDS: PANTOPRAZOLE 40 MG TABLET PO SCH (12:34)
[2019-06-25] MEDS: ALLOPURINOL 300 MG TABLET PO SCH (12:34)
[2019-06-25] MEDS: CITALOPRAM 20 MG TABLET PO SCH (12:34)
[2019-06-25] MEDS: ATORVASTATIN 80 MG TABLET PO SCH (12:34)
[2019-06-25] MEDS: ASPIRIN EC 81 MG TABLET PO SCH (12:34)
[2019-06-25] MEDS: CYANOCOBALAMIN 500 MCG TABLET PO SCH (12:35)
[2019-06-25] MEDS: ASCORBIC ACID 500 MG TABLET PO SCH (12:35)
[2019-06-25] MEDS: POLYETHYLENE GLYCOL POWDER 17 GM PACK PO SCH (12:35)
[2019-06-25 16:08] VITALS: BP 129/62
== END 2019-06-25 18:44 | DRG 280 ==
LOC: SUATTDRO 06-13 01:08 → N.TELES 06-13 01:08 → N.ICU 06-16 11:18 → N.TELEN 06-22 12:53
PROVIDERS: ADMIT Internal Medicine; ATTEND Internal Medicine Nephrology